=== PATIENT | male | born 1970 | race Caucasian/White ===

== ENCOUNTER 2023-10-26 07:46 | Outpatient (AMB) | payer OTHER, SELFPAY ==
[2023-10-26 07:54] VITALS: BP 134/86; PULSE 71; RESP 14; TEMP 35.9; O2SAT 99; BMI 45.3
--- NOTE | 2023-10-26 07:54 | A.OFFPC_ITS ---
Vital Signs 10/26/23 07:54 Height 6 ft 1 in Weight 343 lb 8 oz BMI 45.3 BP 134/86 Blood Pressure Location Lt brachial Position Sitting Respiration 14 Pulse 71 Pulse Source Pulse Oximeter Temp 96.6 F L Temp Source Temporal Artery Scan Pulse Oximetry (%) 99 Oxygen Delivery Method Room Air Intake Visit Reasons: transferring from [facility], requesting refill Intake Note: Patient needs refill on losartan. Typist Required: No Accompanied by: Self / Same As Patient Allergies adhesive tape Adverse Reaction (Severe, Verified 10/26/23 07:59) Hives Medication List - Last Reconciled 10/26/23 by Yanna Cardoso PA-C acetaminophen (Tylenol Extra Strength) 1,000 mg PO Q8H PRN allopurinol 200 mg PO DAILY amlodipine 5 mg PO DAILY clobetasol 0.05% 1 appl topical BID CPAP (CPAP Machine/Device) As directed epinephrine 1 mg IM Q30M PRN fluoxetine 40 mg PO DAILY losartan 100 mg PO DAILY meloxicam 15 mg PO DAILY multivitamin 1 tab PO DAILY Tobacco use date assessed: 10/26/23 Dental Screening Dental Screen Date: 10/26/23 Did you have a dental visit in the last 12 months?: No Did you have a dental problem in the last 6 months where you did not have access to dental care?: No Was dental information given to patient?: Yes HPI transferring from [facility], requesting refill HPI Details Patient is a 53-year-old male who presents today to reestablish care. He is transferring from [facility] and his last cpe with me was 09/11/23 (states he did not do his labs yet). His records are not yet available to be reviewed. He has a significant past medical history of hypertension, sleep apnea, on CPAP, gout, colon polyps, anxiety and depression. CV: Blood pressure today in the office is 134/86. He is currently on losartan 100 mg, amlodipine 5 mg. No chest pain, shortness and breath or palpitations. Cholesterol has been diet controlled. PULM: Compliant with CPAP. Follows with sleep Medicine. Psych: Well controlled with fluoxetine 40 mg. No SI/HI. Musculoskeletal: Allopurinol 200 mg has been helpful for his gout. Uses Tyl enol and meloxicam as needed for aches and pains. Colonoscopy: January 20 2023, due in 2025-polyps PSA:reports being done last year, no urinary sx. PFSH Medical History (Updated 10/26/23 @ 08:54 by Yanna Cardoso PA-C) Colon polyps Gout Hypertension Surgical History (Updated 10/26/23 @ 08:53 by Yanna Cardoso PA-C) H/O gastric sleeve Social History Housing: House Patient Tobacco Use Status: Never used Tobacco e-Cigarette/Vaping Use: Never Used service: No Current occupational status: employed Current occupation: [employer] Cognitive needs: No Hearing needs: Yes Vision needs: No Questionnaire PHQ-9 Over the last 2 weeks, how often have you been bothered by any of the following problems? 1. Little interest or pleasure in doing things: several days 2. Feeling down, depressed, or hopeless: not at all 3. Trouble falling or staying asleep, or sleeping too much: more than half the days 4. Feeling tired or having little energy: nearly every day 5. Poor appetite or overeating: not at all 6. Feeling bad about yourself - or that you are a failure or have let yourself or your family down: not at all 7. Trouble concentrating on things, such as reading the newspaper or watching television: several days 8. Moving or speaking so slowly that other people could have noticed. Or the opposite - being so fidgety or restless that you have been moving around a lot more than usual: not at all 9. Thoughts that you would be better off or of hurting yourself in some way: not at all Total score: 7 Depression Screening Interpretation: Positive Depression Screening Follow-up: E xisting condition and In treatment Depression Screening Done: Yes 23556 - PHQ-9 Billing: Yes Source: Developed by Drs. Serafin Chille, Acacia White, Flynn Hernandez and colleagues, with an educational johanna from [employer]. Thrive Questionnaire Date Thrive assessed: 10/26/23 I am a: Patient What is your living situation today?: I have a steady place to live Within the past 12 months, did the food you bought not last and you didn't have the money to get more?: Never true Within the past 12 months, did you worry whether your food would run out before you got money to buy more?: Never true Do you have trouble paying for medicines?: No Do you have trouble getting transportation to medical appointments?: No Do you have trouble paying your heating and electricity bill?: No Do you have trouble taking care of your child, family member or friend?: No Do you have trouble with day-to-day activities such as bathing, preparing meals, shopping, managing finances, etc.?: No Are you currently unemployed and looking for a job?: No Are you interested in more education?: No Please select the resources that you would like help with: None Currently or been in a relationship where the following occur: no concerns reported THRIVE Score: 0 AUDIT C Alcohol Use Questionnaire (AUDIT-C) 1. How often do you have a drink containing alcohol?: Monthly or less 2. How many drinks containing alcohol do you have on a typical day when you are drinking?: 1 or 2 3. How often do you have six or more drinks on one occasion?: Never Total Score: 1 Score Reviewed/Action Taken: Yes RANDALL-7 AMB Questionnaire RANDALL-7 Date RANDALL - 7 assessed: 10/26/23 Feeling nervous, anxious, or on edge: 0 = Not at all Not being able to stop or control worryin = Not at all Worrying too much about different things: 0 = Not at all Trouble relaxin = Not at all Being so restless that it is hard to sit still: 0 = Not at all Becoming easily annoyed or irritable: 0 = Not at all Feeling afraid as if something awful might happen: 0 = Not at all Total RANDALL-7 score (0-4 normal; 5-9 mild; 10-14 moderate; 15-21 severe): 0 Source: Developed by Drs. Serafin Chilel, Acacia White, Flynn Hernandez and colleagues, with an educational johanna from [employer]. RANDALL-7 Assessment Billing RANDALL-7 Assessment Tool: RANDALL-7 Assessment 49580 Review of Systems Const Denies fatigue, Denies fever(s), Denies night sweats and Denies weight loss Eyes Denies blurry vision ENT Denies facial pain, Denies nasal congestion and Denies nasal discharge Card Denies chest pain, Denies lightheadedness, Denies palpitations and Denies dyspnea Resp Denies cough, Denies dyspnea and Denies wheezing GI Denies abdominal pain, Denies hematochezia, Denies constipation, Denies diarrhea, Denies nausea and Denies vomiting Endo Denies fatigue and Denies palpitations Aller/Immun Denies wheezing Physical exam (Primary Care) Vital Signs: Last Vital Signs Temp 96.6 F L 10/26/23 07:54 Pulse 71 10/26/23 07:54 Resp 14 10/26/23 07:54 BP 134/86 10/26/23 07:54 Pulse Ox 99 10/26/23 07:54 Oxygen Delivery Method Room Air 10/26/23 07:54 BMI result Body Mass Index 45.3 Tobacco/Smoking Status: Tobacco use Status Tobacco use date assessed 10/26/23 10/26/23 08:08 Patient Tobacco Use Status Never used Tobacco 10/26/23 08:08 e-Cigarette/Vaping Use Never Used 10/26/23 08:08 PHQ-9: PHQ-9 Score PHQ-9: Total score 7 10/26/23 08:13 Depression Screening Interpretation: Positive Depression Screening Follow-up: Existing condition and In treatment Thrive Assessment: Date of Thrive Assessment Date Thrive assessed 10/26/23 10/26/23 08:13 Currently or been in a relationship where the following occur: no concerns reported Const Orientation/consciousness: patient oriented x3 HENMT Ears: hearing grossly normal bilaterally Neck Thyroid: Thyroid normal Lymphatic: no lymphadenopathy noted Resp Auscultation: clear to auscultation bilaterally Cardio Rate: regular rate Rhythm: regular rhythm Heart sounds: S1 normal heart sound present and S2 normal heart sound present GI Inspection: Yes normal to inspection Palpation (GI): Soft to palpation and Other GI palpation findings present (nontender, no cva tenderness) Auscultation: normoactive bowel sounds Rectal Exam - Male: Yes deferred Skin General skin exam: no rashes or lesions noted Neuro General: patient oriented x3, gait normal and no focal motor deficits Results Reviewed Results Reviewed: He was able to pull up his portal and his last BMP from last year was WNL, CBC WNL, PSA 0.4 Assessment and Plan Assessment & Plan (1) Hypertension: Code(s): I10 - Essential (primary) hypertension Qualifiers: Hypertension type: primary hypertension Qualified Code(s): I10 - Essential (primary) hypertension Plan: BP elevated today above goal but has been out of losartan for the last 4 days. He does monitor blood pressures at home and reports some as normal. We will return in 4 months for BP recheck. Refills provided at the losartan and amlodipine today. Prefers 30 day supplies. (2) Gout: Code(s): M10.9 - Gout, unspecified Qualifiers: Gout site: foot Gout etiology: unspecified cause Chronicity: chronic Laterality: unspecified laterality Qualified Code(s): M1A.0790 - Idiopathic chronic gout, unspecified ankle and foot, without tophus (tophi) Plan: No current flare. Well-controlled with allopurinol. Uric acid ordered. (3) Colon polyps: Code(s): K63.5 - Polyp of colon Qualifiers: Colon polyp type: unspecified Colon location: unspecified part of colon Qualified Code(s): K63.5 - Polyp of colon Plan: waiting on records due 2025 (4) H/O gastric sleeve: Code(s): Z90.3 - Acquired absence of stomach [part of] Plan: stable. compliant with vitamins Plan labs ordered cbc, cmp, lipids, tsh, psa ordered f/u in 4 months or sooner prn pt understands and agrees with the plan Orders: Orders Lipid Panel Today I10 - Essential (primary) hypertension, M10.9 - Gout, unspecified Complete Blood Count Auto Diff Today I10 - Essential (primary) hypertension, M10.9 - Gout, unspecified TSH reflex Free T4 Today I10 - Essential (primary) hypertension, M10.9 - Gout, unspecified Comprehensive [place]. Panel Fast Today I10 - Essential (primary) hypertension, M10.9 - Gout, unspecified PSA, Ultra Sensitive Today I10 - Essential (primary) hypertension, M10.9 - Gout, unspecified Medications: New amlodipine 5 mg PO DAILY 30 tabs 11RF allopurinol 200 mg (2 x 100 mg) PO DAILY 30 tabs 11RF losartan 100 mg PO DAILY 30 tabs 11RF clobetasol 0.05% 1 appl topical BID 45 grams 3RF meloxicam 15 mg PO DAILY 30 tabs 11RF fluoxetine 40 mg (2 x 20 mg) PO DAILY 30 caps 11RF Coding Level of Care Code Est Pt Level 4 (02131) Complex EM visit Add On G2211 Diagnoses Primary hypertension I10 Hypertension type: primary hypertension Chronic gout of foot, unspecified cause, unspecified laterality M1A.0790 Gout site: foot Gout etiology: unspecified cause Chronicity: chronic Laterality: unspecified laterality Polyp of colon, unspecified part of colon, unspecified type K63.5 Colon polyp type: unspecified Colon location: unspecified part of colon H/O gastric sleeve Z90.3 Additional Codes RANDALL-7 Assessment Billing - RANDALL-7 Assessment Tool: RANDALL-7 Assessment 23059 ([id number])
== END 2023-10-26 08:54 | disposition home or self-care (01) ==
PROVIDERS: Visit Provider Physician Assistant
DX: I10 Essential (primary) hypertension (principal); M1A.0790 Idiopathic chronic gout, unspecified ankle and foot, without tophus (tophi); K63.5 Polyp of colon; Z90.3 Acquired absence of stomach [part of]
CPT/HCPCS: 99214; G2211

== ENCOUNTER 2024-04-28 08:15 | Outpatient (AMB) | payer OTHER, SELFPAY ==
--- NOTE | 2024-04-28 08:35 | MHC.PC.OV ---
Vital Signs 04/28/24 08:36 Height 6 ft 1 in Weight 345 lb 8 oz BMI 45.6 BP 132/80 Blood Pressure Location Lt brachial Position Sitting Pulse 99 Pulse Source Pulse Oximeter Pulse Oximetry (%) 96 Oxygen Delivery Method Room Air Intake Visit Reasons: bp check labs Intake Note: Blood pressure follow up. Did not get labs done, can do today. Allergies adhesive tape Adverse Reaction (Severe, Verified 10/26/23 07:59) Hives Medication List - Last Reconciled 04/28/24 by Yanna Cardoso PA-C acetaminophen (Tylenol Extra Strength) 1,000 mg PO Q8H PRN allopurinol 200 mg (2 x 100 mg) PO DAILY amlodipine 5 mg PO DAILY clobetasol 0.05% 1 appl topical BID CPAP (CPAP Machine/Device) As directed epinephrine 1 mg IM Q30M PRN fluoxetine 40 mg (2 x 20 mg) PO DAILY losartan 100 mg PO DAILY meloxicam 15 mg PO DAILY multivitamin 1 tab PO DAILY Tobacco use date assessed: 10/26/23 Dental Screening Dental Screen Date: 10/26/23 HPI bp check labs HPI Details Patient is a 53-year-old male who presents today to follow up. He has a significant past medical history of hypertension, sleep apnea, on CPAP, gout, colon polyps, anxiety and depression. No acute concerns. He forgot to do labs prior to today's appointment. General: in 2019 he had the gastric sleeve and lost 160 lbs. He was 394 at his highest weight. He did gain back weight since the surgery. He has followed with a associate director finance. He has tried megan villagran atslick. The most he has lost with diet has been 30 lbs. He states he has a hard time moving from this current weight despite paying attention to diet. He works 10 hrs a day and does a lot of walking. He would like to try Wegovy. He states that he has thought about this a lot and thinks that this would be beneficial especially to get him back on track with his diet. CV: Blood pressure today in the office is 132/80. He is currently on losartan 100 mg, amlodipine 5 mg. No chest pain, shortness and breath or palpitations. Cholesterol has been diet controlled. PULM: Compliant with CPAP. Follows with sleep Medicine. Psych: Well controlled with fluoxetine 40 mg. No SI/HI. Musculoskeletal: Allopurinol 200 mg has been helpful for his gout. Uses Tylenol and meloxicam as needed for aches and pains. Colonoscopy: January 20 2023, due in 2025-polyps PSA:reports being done last year, no urinary sx. 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 1. Little interest or pleasure in doing things: not at all 2. Feeling down, depressed, or hopeless: not at all 3. Trouble falling or staying asleep, or sleeping too much: not at all 4. Feeling tired or having little energy: not at all 5. Poor appetite or overeating: not at all 6. Feeling bad about yourself - or that you are a failure or have let yourself or your family down: not at all 7. Trouble concentrating on things, such as reading the newspaper or watching television: not at all 8. Moving or speaking so slowly that other people could have noticed. Or the opposite - being so fidgety or restless that you have been moving around a lot more than usual: not at all 9. Thoughts that you would be better off or of hurting yourself in some way: not at all Total score: 0 Source: Developed by Drs. Serafin Chilel, Acacia White, Flynn Hernandez and colleagues, with an educational johanna from [employer]. Thrive Questionnaire Date Thrive assessed: 04/14/24 Do you have trouble with day-to-day activities such as bathing, preparing meals, shopping, managing finances, etc.?: I choose not to answer this question Are you currently unemployed and looking for a job?: I choose not to answer this question Are you interested in more education?: I choose not to answer this question Please select the resources that you would like help with: None Currently or been in a relationship where the following occur: No concerns reported THRIVE Score: 0 AUDIT C Alcohol Use Questionnaire (AUDIT-C) 1. How often do you have a drink containing alcohol?: 2-4 times a month 2. How many drinks containing alcohol do you have on a typical day when you are drinking?: 1 or 2 3. How often do you have six or more drinks on one occasion?: Never Total Score: 2 RANDALL-7 AMB Questionnaire RANDALL-7 Date RANDALL - 7 assessed: 10/26/23 Feeling nervous, anxious, or on edge: 0 = Not at all Not being able to stop or control worryin = Not at all Worrying too much about different things: 0 = Not at all Trouble relaxin = Not at all Being so restless that it is hard to sit still: 0 = Not at all Becoming easily annoyed or irritable: 0 = Not at all Feeling afraid as if something awful might happen: 0 = Not at all Total RANDALL-7 score (0-4 normal; 5-9 mild; 10-14 moderate; 15-21 severe): 0 Source: Developed by Drs. Serafin Chilel, Acacia White, Flynn Hernandez and colleagues, with an educational johanna from [employer]. Physical exam (Primary Care) Vital Signs: Last Vital Signs Pulse 99 04/28/24 08:36 BP 132/80 04/28/24 08:36 Pulse Ox 96 04/28/24 08:36 Oxygen Delivery Method Room Air 04/28/24 08:36 BMI result Body Mass Index 45.6 Tobacco/Smoking Status: Tobacco use Status Tobacco use date assessed 10/26/23 04/28/24 08:35 Patient Tobacco Use Status Never used Tobacco 04/28/24 08:35 e-Cigarette/Vaping Use Never Used 04/28/24 08:35 PHQ-9: PHQ-9 Score PHQ-9: Total score 0 04/28/24 11:24 Thrive Assessment: Date of Thrive Assessment Date Thrive assessed 04/14/24 04/28/24 08:35 Currently or been in a relationship where the following occur: No concerns reported Const Orientation/consciousness: patient oriented x3 HENMT Ears: hearing grossly normal bilaterally Neck Thyroid: Thyroid normal Lymphatic: no lymphadenopathy noted Resp Auscultation: clear to auscultation bilaterally Cardio Rate: regular rate Rhythm: regular rhythm Heart sounds: S1 normal heart sound present and S2 normal heart sound present GI Inspection: Yes normal to inspection Palpation (GI): Soft to palpation and Other GI palpation findings present (nontender, no cva tenderness) Auscultation: normoactive bowel sounds Rectal Exam - Male: Yes deferred Skin General skin exam: no rashes or lesions noted Neuro General: patient oriented x3, gait normal and no focal motor deficits Coding Level of Care Code Est Pt Level 4 (43802) Complex EM visit Add On G2211 Diagnoses Severe obesity (BMI >= 40) E66.01 MDD (major depressive disorder), recurrent episode, mild F33.0 Primary hypertension I10 Hypertension type: primary hypertension Assessment & Plan Assessment & Plan (1) Severe obesity (BMI >= 40): Code(s): E66.01 - Morbid (severe) obesity due to excess calories Category: Medical Plan: We will start on Wegovy. We discussed risks and benefits and adverse effects of this medication including nausea, vomiting, constipation, increased risk of pancreatitis. He is aware of the increased risk of thyroid malignancies. No family history. (2) MDD (major depressive disorder), recurrent episode, mild: Code(s): F33.0 - Major depressive disorder, recurrent, mild Category: Medical Plan: Well-controlled fluoxetine. Continue current regimen (3) Hypertension: Code(s): I10 - Essential (primary) hypertension Category: Medical Qualifiers: Hypertension type: primary hypertension Qualified Code(s): I10 - Essential (primary) hypertension Plan: WNL. Continue current regimen. Plan He will get labs done today. Orders: Orders Hemoglobin A1c Today E66.01 - Morbid (severe) obesity due to excess calories Medications: New semaglutide (weight loss) (Wegovy) 0.25 mg (0.5 mL) subcut QWEEK 2 mL 1RF
[2024-04-28 08:36] VITALS: BP 132/80; PULSE 99; O2SAT 96; BMI 45.6
== END 2024-04-28 09:16 | disposition home or self-care (01) ==
LOC: HO.HMCFM 08:15
PROVIDERS: PCP Physician Assistant; Visit Provider Physician Assistant
DX: I10 Essential (primary) hypertension (principal); E66.01 Morbid (severe) obesity due to excess calories; F33.0 Major depressive disorder, recurrent, mild; Z68.42 Body mass index [BMI] 45.0-49.9, adult

== ENCOUNTER → 2024-04-28 08:15 | Outpatient (BNVA) | payer OTHER, SELFPAY | PROVIDERS: Visit Provider Physician Assistant ==

== ENCOUNTER 2024-04-29 06:02 | Outpatient (REF) | payer OTHER, SELFPAY ==
[2024-04-29 10:24] LABS: MANUAL DIFF FLAG NO
[2024-04-29 10:35] LABS: Basophils Percent Auto 0.8 % (0-2); Eosinophils Absolute Auto 0.2 X10*3/uL (0.0-0.4); Eosinophils Percent Auto 3.1 % (0-4); Hematocrit 41.7 % (42.0-52.0); Hemoglobin 13.9 g/dl (14.0-18.0); Imm Gran Abs Auto 0.01 X10*3/uL (0.00-0.03); Imm Gran Pct Auto 0.2 % (0.0-0.4); Lymphocytes Absolute Auto 1.2 X10*3/uL (1.2-4.9); Lymphocytes Percent Auto 23.6 % (20-40); Mean Corpuscular HGB Conc 33.3 g/dl (31.0-36.0); Mean Corpuscular Hemoglobin 30.2 pg (27.0-33.0); Mean Corpuscular Volume 90.7 fL (80.0-98.0); Mean Platelet Volume 9.7 fL (9.4-12.4); Monocytes Absolute Auto 0.4 X10*3/uL (0.1-1.2); Monocytes Percent Auto 7.6 % (2-11); Neutrophils Absolute Auto 3.2 x10*3/uL (2.0-8.3); Neutrophils Percent Auto 64.7 % (45-73); Platelet Count 243 X10*3/uL (160-400); Red Cell Distribution Width 12.9 % (11.0-16.0); White Blood Count 4.9 X10*3/uL (4.8-10.8)
[2024-04-29 11:02] LABS: Estimated Average Glucose 103 mg/dL; Hemoglobin A1C 116.3855 umol/L; Hemoglobin A1c % 5.2 % (<6.0); Total Hemoglobin (HGBA1C) 3469.7439 umol/L
[2024-04-29 11:24] LABS: Alanine Aminotransferase 39 U/L (0-40); Albumin Level 3.9 g/dL (3.5-5.0); Alkaline Phosphatase 52 U/L (39-117); Anion Gap 13 (12-20); Aspartate Amino Transferase 32 U/L (5-37); Bilirubin Total 0.5 mg/dL (0.0-1.0); Blood Urea Nitrogen 18 mg/dL (9-16); Calcium 9.6 mg/dL (8.4-10.2); Carbon Dioxide 21 mmol/L (22-29); Chloride 109 mmol/L (96-108); Cholesterol 178 mg/dL (<200); Estimated Glomerular Filt Rate > 60; Glucose Fasting 86 mg/dL (60-99); HDL Cholesterol 48 mg/dL (>40); LDL Cholesterol Calculated 112 mg/dL (<100); Potassium 4.3 mmol/L (3.3-5.1); Sodium 139 mmol/L (135-145); TSH reflex Free T4 1.09 uIU/mL (0.32-4.0); Total Protein 7.3 g/dL (6.5-8.0); Triglycerides 90 mg/dL (<150)
[2024-05-10 21:33] LABS: PSA, Ultra Sensitive 0.44 ng/mL
== END 2024-04-29 06:03 | disposition home or self-care (01) ==
LOC: HO.HMGCLDS 06:02
PROVIDERS: PCP Physician Assistant; Visit Provider Physician Assistant
DX: M10.9 Gout, unspecified (principal); I10 Essential (primary) hypertension; E66.01 Morbid (severe) obesity due to excess calories; Z12.5 Encounter for screening for malignant neoplasm of prostate; Z13.1 Encounter for screening for diabetes mellitus
CPT/HCPCS: 36415; 80053; 80061; 83036; 84153; 84443; 85025

== ENCOUNTER 2024-05-31 11:38 | Outpatient (AMB) | payer OTHER, SELFPAY ==
--- NOTE | 2024-05-31 11:55 | AM.OFFWIN_ITS ---
Intake Vital Signs 05/31/24 11:56 Weight 346 lb BP 130/80 Blood Pressure Location Rt brachial Position Sitting Pulse 70 Pulse Source Pulse Oximeter Temp 97.8 F Temp Source Oral Pulse Oximetry (%) 98 Oxygen Delivery Method Room Air Intake Visit Reasons: EP ripped off RT thumb nail Intake Note: Patient here for thumb nail hanging off nail bed that happened about 1 hour ago. Patient Tobacco Use Status: Never used Tobacco Allergies adhesive tape Adverse Reaction (Severe, Verified 05/31/24 11:57) Hives Do you need a note to return to daycare/school/sports/work: No HPI HPI Comments History of Present Illness Details This is a 53-year-old male with a past medical history of arthritis, hypertension, gout and depression presenting for evaluation of a right thumb injury that occurred prior to arrival. Patient states he was working on his [employer] truck and was utilizing a wrench to loosen a bolt when the bolt loosened suddenly and he caught his right thumbnail on a piece of his truck. Patient states the thumbnail is attached at the base only. 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 Cognitive needs: No Hearing needs: Yes Vision needs: No Review of Systems Const All systems reviewed & are unremarkable except as noted in HPI and below Reports no additional complaints Eyes Reports no additional complaints ENT Reports no additional complaints Card Reports no additional complaints Resp Reports no additional complaints GI Reports no additional complaints Reports no additional complaints Musc Details: avulsion right thumb nail, no bony pain of right thumb Skin/Breast Details: avulsion right thumb nail Neuro Reports no additional complaints Psych Reports no additional complaints Endo Reports no additional complaints Mumtaz/Lymph Reports no additional complaints Physical Exam Vital Signs: Last Vital Signs Temp 97.8 F 05/31/24 11:56 Pulse 70 05/31/24 11:56 BP 130/80 05/31/24 11:56 Pulse Ox 98 05/31/24 11:56 Oxygen Delivery Method Room Air 05/31/24 11:56 Const General: cooperative, comfortable, no acute distress and well developed Nutritional Appearance: obese Orientation/consciousness: patient oriented x3 Limitations: no limitations Neuro General: patient oriented x3 Extrem Other: Near complete avulsion of right thumb nail; no damage noted to the nail base, no bony pain phalanges of the right 1st digit General: Yes full ROM (right thumb) Right upper extremity: Extremity exam: right hand Details: abnormal to inspection (avulsion right thumb nail; attached at base of nail only) Psych Appearance: grossly normal Mental Status: mental status grossly normal Insight: Good insight present (Psych) Judgement: Good judgement present (Psych) Office Procedures Nail I&D/Excision 18731-Cccubfrf of nail plate, partial or completed, single 49574-Apdtghrx of nail/nail matrix, partial or complete, perm removal (Right thumb nail completely removed following digital block with 2% lidocaine; no damage to nail bed of right 1st digit.) Additional procedure code (CPT) needed Assessment & Plan Assessment & Plan (1) Avulsion of nail of right thumb: Comment: Thumbnail completely removed, no damage to the nail bed noted. Code(s): S61.101A - Unspecified open wound of right thumb with damage to nail, initial encounter Plan: Nonstick gauze with Kerlix dressing is placed. Patient is instructed to use Tylenol as needed for his discomfort and use non.stick dressing with antibiotic ointment topically. Coding Level of Care Code New Pt Level 4 (44400) Diagnoses Avulsion of nail of right thumb S61.101A CPT Codes I&D Nail Bed/Hematoma - CPT: 52573-Uduogyzw of nail plate, partial or completed, single ([id number]) I&D Nail Bed/Hematoma - CPT: 44990-Reqhjmkq of nail/nail matrix, partial or complete, perm removal ([id number]) Time Spent (min) 35
[2024-05-31 11:56] VITALS: BP 130/80; PULSE 70; TEMP 36.6; O2SAT 98
== END 2024-05-31 12:58 | disposition home or self-care (01) ==
PROVIDERS: PCP Physician Assistant; Visit Provider Physician Assistant
DX: S61.101A Unspecified open wound of right thumb with damage to nail, initial encounter (principal)
CPT/HCPCS: 11730

== ENCOUNTER 2025-02-23 07:54 | Outpatient (REF) | payer OTHER, SELFPAY ==
[2025-02-23 11:22] LABS: Appearance Urine Clear; Glucose Urine UA Negative (Negative); PH 8.0 (5.0-9.0); Specific Gravity - Urine 1.015 (1.005-1.025)
[2025-02-23 11:27] LABS: MANUAL DIFF FLAG NO
[2025-02-23 11:43] LABS: Hematocrit 41.4 % (42.0-52.0); Hemoglobin 13.9 g/dl (14.0-18.0); Imm Gran Abs Auto 0.02 X10*3/uL (0.00-0.03); Imm Gran Pct Auto 0.4 % (0.0-0.4); Lymphocytes Absolute Auto 1.3 X10*3/uL (1.2-4.9); Mean Corpuscular HGB Conc 33.6 g/dl (31.0-36.0); Mean Corpuscular Hemoglobin 30.9 pg (27.0-33.0); Mean Corpuscular Volume 92.0 fL (80.0-98.0); NRBC Abs Auto 0.000 X10*3/uL (0.0-0.012); NRBC Pct Auto 0.0 /100WBC (0.0-0.2); Platelet Count 249 X10*3/uL (160-400); Red Blood Count 4.50 X10*6/uL (4.60-5.80); White Blood Count 5.6 X10*3/uL (4.8-10.8)
[2025-02-23 12:08] LABS: Ferritin 127 ng/mL (20-250)
[2025-02-23 12:18] LABS: Alanine Aminotransferase 44 U/L (0-40); Albumin Level 4.3 g/dL (3.5-5.0); Alkaline Phosphatase 44 U/L (39-117); Anion Gap 10 (12-20); Aspartate Amino Transferase 35 U/L (5-37); Blood Urea Nitrogen 15 mg/dL (9-16); Calcium 9.0 mg/dL (8.4-10.2); Carbon Dioxide 24 mmol/L (22-29); Chloride 107 mmol/L (96-108); Cholesterol 182 mg/dL (<200); Estimated Glomerular Filt Rate > 60; HDL Cholesterol 44 mg/dL (>40); Iron 120 mcg/dL (45-160); Magnesium 2.2 mg/dL (1.6-2.6); Percent Iron Saturation 42 % (15-50); Potassium 4.1 mmol/L (3.3-5.1); Sodium 137 mmol/L (135-145); Total Iron Binding Capacity 286 mcg/dL (228-428); Total Protein 7.6 g/dL (6.5-8.0); Triglycerides 127 mg/dL (<150); Unsaturated Iron Binding 166 ug/dL
[2025-02-23 12:29] LABS: Uric Acid 5.8 mg/dL (3.4-7.0)
[2025-02-23 12:49] LABS: Folate 7.7 ng/mL (> or = 4.0); Vitamin B12 214 pg/mL (200-900)
[2025-02-28 13:13] LABS: Testosterone, Free 53.5 pg/mL (35.0-155.0)
== END 2025-02-23 07:55 | disposition home or self-care (01) ==
LOC: HO.WFDLDS 07:54
PROVIDERS: PCP Physician Assistant; Visit Provider Physician Assistant
DX: Z00.00 Encounter for general adult medical examination without abnormal findings (principal); Z01.89 Encounter for other specified special examinations; Z12.5 Encounter for screening for malignant neoplasm of prostate; L30.9 Dermatitis, unspecified; I10 Essential (primary) hypertension; F33.0 Major depressive disorder, recurrent, mild; E66.01 Morbid (severe) obesity due to excess calories; R53.83 Other fatigue; R55 Syncope and collapse; R06.00 Dyspnea, unspecified; M1A.0790 Idiopathic chronic gout, unspecified ankle and foot, without tophus (tophi); M25.562 Pain in left knee; M79.605 Pain in left leg; M79.604 Pain in right leg; R25.2 Cramp and spasm; Z90.3 Acquired absence of stomach [part of]; Z68.41 Body mass index [BMI] 40.0-44.9, adult
CPT/HCPCS: 36415; 80053; 80061; 81003; 82043; 82306; 82570; 82607; 82728; 82746; 83036; 83540; 83735; 84153; 84402; 84403; 84425; 84443; 84550; 84630; 85025; 93005

== ENCOUNTER 2025-02-23 07:54 | Outpatient (AMB) | payer OTHER, SELFPAY ==
--- OUTSIDE RECORDS SUMMARY | 2025-02-23 07:58 | XMS_ITS | Patient Health Record ---
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 Role Phone Genny Guido MD Primary Care Provider Unavail able Fatuma Busby Unavailable [phone] Allergies Allergen (clinical drug ingredient) Drug/Non Drug Allergy documented on EMR Reaction Allergy Type Onset Date Status Adhesive tape (uncoded) Unknown Allergy Active Reason For Referral No Information Medications Medication SIG (Take, Route, Frequency, Duration) Notes Start Date End Date Status FLUoxetine HCl 20 MG Oral; Duration: 30 Active Allopurinol 100 MG Oral; Duration: 30 Active Losartan Potassium 100 MG Oral; Duration: 30 Active amLODIPine Besylate 10 MG Oral; Duration: 90 Active Social History Tobacco Use: Social History Observation Description Date Details (start date - stop date) Never Smoker NA - NA Tobacco Use/Smoking Question Answer Notes Are you a: nonsmoker Alcohol Screen Question Answer Notes Did you have a drink containing alcohol in the p ast year? No Points 0 Interpretation Negative Tobacco use other than smoking: Question Answer Notes Are you an other tobacco user? No Plan Of Treatment No Information Insurance Providers Payer Name Payer Address Payer Phone Subscriber Number Group Number Insured Name Patient Relationship to Insured Coverage Start Date Coverage End Date [facility] [address] [facility] [place] [id number] Brian Cornejo Self - patient is the insured Medical (General) History Medical History History ICD Code Gout High blood pressure Sciatica Surgical History Surgery Date(Month/Year) umbilical hernia repair 2018 gastric bypass vsg 02/2019
--- NOTE | 2025-02-23 08:05 | MHC.PC.OV ---
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: No Allergies adhesive tape Adverse Reaction (Severe, Verified 02/23/25 08:07) Hives Medication List - Last Reconciled 02/23/25 by Yanna Cardoso PA-C allopurinol 200 mg (2 x 100 mg) PO DAILY amlodipine 5 mg PO DAILY clobetasol 0.05% 1 appl topical BID CPAP (CPAP Machine/Device) As directed epinephrine 1 mg IM Q30M PRN fluoxetine 40 mg PO DAILY losartan 100 mg PO DAILY meloxicam 15 mg PO DAILY multivitamin 1 tab PO DAILY Tobacco use date assessed: 02/23/25 Dental Screening Dental Screen Date: 02/23/25 Did you have a dental visit in the last 12 months?: Yes Did you have a dental problem in the last 6 months where you did not have access to dental care?: No Was dental information given to patient?: Patient has dentist HPI Annual PE HPI Details Patient is a 54-year-old male who presents today for a physical but has a list of concerns today. He has a significant past medical history of hypertension, sleep apnea, on CPAP, gout, colon polyps, anxiety and depression. -He complains today of leg cramps at night. notices it on days that he is more physical active. He tries to wear supportive footwear and states that there is a chance he is not as well hydrated as he should be. He has not tried anything for this. No leg pain with exertion. No leg pain at rest. States that this is just cramps at night and it is not every night. It comes and goes in different calves. He denies any numbness, tingling or weakness. -He states he is also getting upper leg discomfort from groin down to above knee. He states that this only happens at night and it feels like his groin is stiff for tight in the pain will radiate from the groin down the inner thigh. It does not go all the way down the leg. Does not feel numb or tingling. He describes it as like a sharp shooting pain almost like a pinched nerve. Again, this is on days that he is more physically active. He states that he does not exercise or stretch routinely. It gets better with standing up, stretching and moving. No bowel or bladder dysfunction. -reports left knee pain that has been present for years. He states it has gradually worsened. He is intermittently getting instability with the knee. He has not noticed any swelling. The pain is throughout the knee. He is on meloxicam for this and it is helpful but not fully alleviating it. -he tells me today that he also had an episode of syncope in June. He states that it was in the middle of the night he got up and he was stretching because he had discomfort in his leg and then when he was standing there he all of a sudden felt lightheaded. He states that he collapse and he does not know how long he was down for. He assumes it was less than a minute but did not look at the time. He did not feel disoriented after getting up. He states that it was a moment of feeling weak like he was going to faint and then he did collapse. There was no incontinence, biting of the tongue. He did have some back pain from the fall because he landed mostly on his right side. He did not have any chest pain or palpitations with this. He did feel a little off right before he fainted. He does sometimes have shortness a breath with exertion but attributes this to being overweight and out of shape. He has never had a stress test. His blood pressure today in the office is 134/86. He is currently on losartan 100 mg and amlodipine 5 mg daily. His cholesterol has always been diet controlled. -he tells me today he is getting dentures. He states that he has significant gum disease so he is getting his top teeth pulled soon. -He does complain of feeling lack of motivation and fatigue. He states that this has been going on for about a year. He is not on any supplements. He is s/p gastric sleeve. He is compliant with his CPAP. Follows with sleep medicine. He is on fluoxetine 40 mg and feels well with this. No SI/HI. He denies any depression symptoms. He also reports a decreased libido. He states that he is able to get an erection and maintain an erection but he lacks interest in sex. 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 1. Little interest or pleasure in doing things: more than half the days 2. Feeling down, depressed, or hopeless: not at all 3. Trouble falling or staying asleep, or sleeping too much: not at all 4. Feeling tired or having little energy: more than half the days 5. Poor appetite or overeating: more than half the days 6. Feeling bad about yourself - or that you are a failure or have let yourself or your family down: not at all 7. Trouble concentrating on things, such as reading the newspaper or watching television: not at all 8. Moving or speaking so slowly that other people could have noticed. Or the opposite - being so fidgety or restless that you have been moving around a lot more than usual: not at all 9. Thoughts that you would be better off or of hurting yourself in some way: not at all Total score: 6 Source: Developed by Drs. Serafin Chilel, Acacia White, Flynn Hernandez and colleagues, with an educational johanna from [employer]. Thrive Questionnaire Date Thrive assessed: 02/20/25 I am a: Patient What is your living situation today?: I choose not to answer this question Within the past 12 months, did the food you bought not last and you didn't have the money to get more?: I choose not to answer this question Within the past 12 months, did you worry whether your food would run out before you got money to buy more?: I choose not to answer this question Do you have trouble paying for medicines?: I choose not to answer this question Do you have trouble getting transportation to medical appointments?: I choose not to answer this question Do you have trouble paying your heating and electricity bill?: I choose not to answer this question Do you have trouble taking care of your child, family member or friend?: I choose not to answer this question Do you have trouble with day-to-day activities such as bathing, preparing meals, shopping, managing finances, etc.?: No Are you currently unemployed and looking for a job?: No Are you interested in more education?: No Please select the resources that you would like help with: None Currently or been in a relationship where the following occur: I choose not to answer THRIVE Score: 0 AUDIT C Alcohol Use Questionnaire (AUDIT-C) 1. How often do you have a drink containing alcohol?: 2-4 times a month 2. How many drinks containing alcohol do you have on a typical day when you are drinking?: 1 or 2 3. How often do you have six or more drinks on one occasion?: Never Total Score: 2 RANDALL-7 AMB Questionnaire RANDALL-7 Date RANDALL - 7 assessed: 10/26/23 Feeling nervous, anxious, or on edge: 0 = Not at all Not being able to stop or control worryin = Not at all Worrying too much about different things: 0 = Not at all Trouble relaxin = Not at all Being so restless that it is hard to sit still: 0 = Not at all Becoming easily annoyed or irritable: 0 = Not at all Feeling afraid as if something awful might happen: 0 = Not at all Total RANDALL-7 score (0-4 normal; 5-9 mild; 10-14 moderate; 15-21 severe): 0 Source: Developed by Drs. Serafin Chilel, Acacia White, Flynn Hernandez and colleagues, with an educational johanna from [employer]. Physical exam (Primary Care) Vital Signs: Last Vital Signs Pulse 62 02/23/25 08:08 Resp 14 02/23/25 08:08 BP 134/86 02/23/25 08:08 Pulse Ox 98 02/23/25 08:08 Oxygen Delivery Method Room Air 02/23/25 08:08 BMI result Body Mass Index 44.2 Tobacco/Smoking Status: Tobacco use Status Tobacco use date assessed 02/23/25 02/23/25 08:12 Patient Tobacco Use Status Never used Tobacco 02/23/25 08:06 e-Cigarette/Vaping Use Never Used 02/23/25 08:06 PHQ-9: PHQ-9 Score PHQ-9: Total score 6 02/23/25 08:17 Thrive Assessment: Date of Thrive Assessment Date Thrive assessed 02/20/25 02/23/25 08:06 Currently or been in a relationship where the following occur: I choose not to answer Const Orientation/consciousness: patient oriented x3 HENMT Ears: hearing grossly normal bilaterally and TM's normal bilaterally General nose exam: No nasal polyps present Face and sinus: Yes sinuses nontender Mouth: Normal oral and palatal mucosa present Eyes Pupils: Equal, round and reactive pupils present EOM: EOMs intact bilaterally Neck Neck: Yes full ROM and Yes no lymphadenopathy Thyroid: Thyroid normal Chest Chest palpation & inspection: normal inspection of the chest Resp Auscultation: clear to auscultation bilaterally Cardio Rate: regular rate Rhythm: regular rhythm Heart sounds: S1 normal heart sound present and S2 normal heart sound present Peripheral pulses: Peripheral pulses 2+ throughout GI Other: Soft, nontender Auscultation: normal bowel sounds Rectal Exam - Male: Yes deferred General: Yes no CVA tenderness Back/Spine/Pelvis Other: Nontender Back: no CVA tenderness Skin General skin exam: no rashes or lesions noted Neuro General: patient oriented x3, gait normal, CN's II-XI intact bilaterally and deep tendon reflexes 2+ bilaterally Cranial nerves: Yes Equal, round and reactive pupils present Motor exam (neuro): 5/5 motor strength present throughout Sensory Exam: double simultaneous stimulation for sensation normal Coordination: [id number] test normal and Romberg test negative Extrem General: Yes normal to inspection and Yes full ROM Psych Affect: normal affect Attitude: cooperative Thought process: Normal thought process present Thought content: Normal thought content present Insight: Good insight present (Psych) Judgement: Good judgement present (Psych) Office Procedures EKG Details: EKG today in office is sinus bradycardia at a rate of 58 beats per minute with nonspecific STT wave abnormalities. No prior study to compare [id number], Complete Results Reviewed Results Reviewed: Laboratory Tests 04/29/24 06:06 WBC 4.9 RBC 4.60 Hgb 13.9 L Hct 41.7 L Plt Count 243 Sodium 139 Potassium 4.3 Chloride 109 H Carbon Dioxide 21 L Anion Gap 13 BUN 18 H Creatinine 0.91 Estimated GFR > 60 Hemoglobin A1c % 5.2 Calcium 9.6 Total Bilirubin 0.5 AST 32 ALT 39 Alkaline Phosphatase 52 Total Protein 7.3 Albumin 3.9 Triglycerides 90 Cholesterol 178 LDL Cholesterol, Calc 112 H HDL Cholesterol 48 PSA Ultra-Sensitive 0.44 TSH 1.09 Coding Level of Care Code Est Pt Level 4 (24339) Est Pt Prev Care 40-64y(64576) Diagnoses Routine general medical examination at a health care facility Z00.00 Eczema L30.9 Primary hypertension I10 Hypertension type: primary hypertension H/O gastric sleeve Z90.3 MDD (major depressive disorder), recurrent episode, mild F33.0 Severe obesity (BMI >= 40) E66.01 Fatigue R53.83 Syncope R55 Dyspnea R06.00 Left knee pain M25.562 Bilateral leg pain M79.604; M79.605 Leg cramps R25.2 CPT Codes EKG - CPT: 94582-[id number], Complete ([id number]) Assessment & Plan Assessment & Plan (1) Routine general medical examination at a health care facility: Code(s): Z00.00 - Encounter for general adult medical examination without abnormal findings Plan: reviewed labs ordered referrals placed (2) Eczema: Code(s): L30.9 - Dermatitis, unspecified Category: Medical Plan: Refilled clobetasol cream. Referral to Dermatology. (3) Hypertension: Code(s): I10 - Essential (primary) hypertension Category: Medical Qualifiers: Hypertension type: primary hypertension Qualified Code(s): I10 - Essential (primary) hypertension Plan: WNL. Continue current regimen (4) H/O gastric sleeve: Code(s): Z90.3 - Acquired absence of stomach [part of] Category: Surgical Plan: Labs ordered. Did discuss that he may likely need to be on vitamins. (5) MDD (major depressive disorder), recurrent episode, mild: Code(s): F33.0 - Major depressive disorder, recurrent, mild Category: Medical Plan: Currently well-controlled on fluoxetine. ? If fluoxetine is causing decreased libido (6) Severe obesity (BMI >= 40): Code(s): E66.01 - Morbid (severe) obesity due to excess calories Category: Medical Plan: Encouraged diet and exercise. He has lost 10 lb since our previous visit (7) Fatigue: Code(s): R53.83 - Other fatigue Category: Medical Plan: Labs ordered today. We will follow up pending test results (8) Syncope: Code(s): R55 - Syncope and collapse Category: Medical Plan: Labs EKG today is sinus bradycardia at a rate of 58 beats per minute with nonspecific STT wave abnormalities. No previous study to compare. Stress test and echo ordered. Carotid ultrasound ordered (9) Dyspnea: Code(s): R06.00 - Dyspnea, unspecified Category: Medical Plan: As above (10) Left knee pain: Code(s): M25.562 - Pain in left knee Category: Medical Plan: X-ray ordered. Referral to ortho (11) Bilateral leg pain: Code(s): M79.604 - Pain in right leg; M79.605 - Pain in left leg Category: Medical Plan: Imaging ordered (12) Leg cramps: Code(s): R25.2 - Cramp and spasm Plan: Advised to hydrate, try magnesium. We will check labs. I have also encouraged stretching and supportive footwear Orders: Orders Testosterone, Free/Total Today E66.01 - Morbid (severe) obesity due to excess calories, F33.0 - Major depressive disorder, recurrent, mild, I10 - Essential (primary) hypertension, R53.83 - Other fatigue, R55 - Syncope and collapse, Z90.3 - Acquired absence of stomach [part of] Hemoglobin A1c Today E66.01 - Morbid (severe) obesity due to excess calories, F33.0 - Major depressive disorder, recurrent, mild, I10 - Essential (primary) hypertension, R53.83 - Other fatigue, R55 - Syncope and collapse, R73.01 - Impaired fasting glucose, Z90.3 - Acquired absence of stomach [part of] Complete Blood Count Auto Diff Today E66.01 - Morbid (severe) obesity due to excess calories, F33.0 - Major depressive disorder, recurrent, mild, I10 - Essential (primary) hypertension, R53.83 - Other fatigue, R55 - Syncope and collapse, Z90.3 - Acquired absence of stomach [part of] Lipid Panel Today E66.01 - Morbid (severe) obesity due to excess calories, F33.0 - Major depressive disorder, recurrent, mild, I10 - Essential (primary) hypertension, R53.83 - Other fatigue, R55 - Syncope and collapse, Z90.3 - Acquired absence of stomach [part of] Vitamin B12 and Folate Today E66.01 - Morbid (severe) obesity due to excess calories, F33.0 - Major depressive disorder, recurrent, mild, I10 - Essential (primary) hypertension, R53.83 - Other fatigue, R55 - Syncope and collapse, Z90.3 - Acquired absence of stomach [part of] Ferritin Today E66.01 - Morbid (severe) obesity due to excess calories, F33.0 - Major depressive disorder, recurrent, mild, I10 - Essential (primary) hypertension, R53.83 - Other fatigue, R55 - Syncope and collapse, Z90.3 - Acquired absence of stomach [part of] IRON PROFILE Today E66.01 - Morbid (severe) obesity due to excess calories, F33.0 - Major depressive disorder, recurrent, mild, I10 - Essential (primary) hypertension, R53.83 - Other fatigue, R55 - Syncope and collapse, Z90.3 - Acquired absence of stomach [part of] TSH reflex Free T4 Today E66.01 - Morbid (severe) obesity due to excess calories, F33.0 - Major depressive disorder, recurrent, mild, I10 - Essential (primary) hypertension, R53.83 - Other fatigue, R55 - Syncope and collapse, Z90.3 - Acquired absence of stomach [part of] UA CC w/rflx Micro + Cult Today E66.01 - Morbid (severe) obesity due to excess calories, F33.0 - Major depressive disorder, recurrent, mild, I10 - Essential (primary) hypertension, R30.0 - Dysuria, R53.83 - Other fatigue, R55 - Syncope and collapse, Z90.3 - Acquired absence of stomach [part of] Microalbumin, Random (w Creat) Today E66.01 - Morbid (severe) obesity due to excess calories, F33.0 - Major depressive disorder, recurrent, mild, I10 - Essential (primary) hypertension, R53.83 - Other fatigue, R55 - Syncope and collapse, Z90.3 - Acquired absence of stomach [part of] Zinc Today E66.01 - Morbid (severe) obesity due to excess calories, F33.0 - Major depressive disorder, recurrent, mild, I10 - Essential (primary) hypertension, R53.83 - Other fatigue, R55 - Syncope and collapse, Z90.3 - Acquired absence of stomach [part of] Prostate Specific Antigen Scr Today E66.01 - Morbid (severe) obesity due to excess calories, F33.0 - Major depressive disorder, recurrent, mild, I10 - Essential (primary) hypertension, R53.83 - Other fatigue, R55 - Syncope and collapse, Z01.89 - Encounter for other specified special examinations, Z90.3 - Acquired absence of stomach [part of] Uric Acid Today M1A.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 Panel Fast Today E66.01 - Morbid (severe) obesity due to excess calories, F33.0 - Major depressive disorder, recurrent, mild, I10 - Essential (primary) hypertension, R53.83 - Other fatigue, R55 - Syncope and collapse, Z90.3 - Acquired absence of stomach [part of] Magnesium Today E66.01 - Morbid (severe) obesity due to excess calories, F33.0 - Major depressive disorder, recurrent, mild, I10 - Essential (primary) hypertension, R53.83 - Other fatigue, R55 - Syncope and collapse, Z90.3 - Acquired absence of stomach [part of] Vitamin B1 Today E66.01 - Morbid (severe) obesity due to excess calories, F33.0 - Major depressive disorder, recurrent, mild, I10 - Essential (primary) hypertension, R53.83 - Other fatigue, R55 - Syncope and collapse, Z90.3 - Acquired absence of stomach [part of] Vitamin D 25-OH Total Today E66.01 - Morbid (severe) obesity due to excess calories, F33.0 - Major depressive disorder, recurrent, mild, I10 - Essential (primary) hypertension, R53.83 - Other fatigue, R55 - Syncope and collapse, Z90.3 - Acquired absence of stomach [part of] XR hips LINDA min 3V Today M25.551 - Pain in right hip, M25.552 - Pain in left hip XR lumbar spine 2-3V Today M54.50 - Low back pain, unspecified XR knee LT 2V Today M25.561 - Pain in right knee, M25.562 - Pain in left knee AMB EKG-In Office Today R06.00 - Dyspnea, unspecified, R55 - Syncope and collapse, Z13.6 - Encounter for screening for cardiovascular disorders CA stress test Today R06.00 - Dyspnea, unspecified, R55 - Syncope and collapse, Z13.6 - Encounter for screening for cardiovascular disorders NM cardiolite stress test Today R06.00 - Dyspnea, unspecified, R07.9 - Chest pain, unspecified, R55 - Syncope and collapse, Z13.6 - Encounter for screening for cardiovascular disorders ECG holter monitor 24 hour Today R06.00 - Dyspnea, unspecified, R55 - Syncope and collapse, Z13.6 - Encounter for screening for cardiovascular disorders CA echo transthoracic complete Today R06.00 - Dyspnea, unspecified, R55 - Syncope and collapse, Z13.6 - Encounter for screening for cardiovascular disorders Referrals Dermatology Referral L30.9 - Dermatitis, unspecified Orthopedics Referral M25.562 - Pain in left knee Medications: Refilled clobetasol 0.05% 1 appl topical BID 45 grams 3RF
[2025-02-23 08:08] VITALS: BP 134/86; PULSE 62; RESP 14; O2SAT 98; BMI 44.2
== END 2025-02-23 09:00 | disposition home or self-care (01) ==
LOC: HO.HMCFM 07:55
PROVIDERS: PCP Physician Assistant; Visit Provider Physician Assistant
DX: Z00.00 Encounter for general adult medical examination without abnormal findings (principal); I10 Essential (primary) hypertension; E66.01 Morbid (severe) obesity due to excess calories; Z68.41 Body mass index [BMI] 40.0-44.9, adult; L30.9 Dermatitis, unspecified; Z90.3 Acquired absence of stomach [part of]; F33.0 Major depressive disorder, recurrent, mild; R53.83 Other fatigue; R55 Syncope and collapse; R06.00 Dyspnea, unspecified; M25.562 Pain in left knee; M79.604 Pain in right leg

== ENCOUNTER → 2025-03-27 13:48 | Outpatient (REF) | payer OTHER, SELFPAY ==
--- NOTE | 2025-03-27 13:51 | HM_ITS ---
Conclusion: 1. Patient was monitored for total period of 1 day and 1 hour 2. Baseline was normal sinus rhythm with average heart of 66 beats per minute 3. Rare PACs noted 4. No significant pauses or tachyarrhythmias noted 5. No patient reported events MTDD
--- NOTE | 2025-03-27 13:51 | CA_ITS ---
Transthoracic Echocardiogram Patient (Last, First, Middle): Brian Cornejo D Gender: M Date of : 1970 Age: 54 Procedure Date: 03/27/2025 Procedure Type: Transthoracic Echocardiogram Location: OP Height: 185. cm Weight: 151.96 kg BSA: 2.67 m2 Heart Rate: 55 bpm BP: 148 / 90 mmHg Car Repossessor: ARNALDO Referring MD: Yanna Cardoso PA-C Symptoms: Z13.6 - Encounter for screening for cardiovascular disorders Study Quality: Adequate ECG Rhythm: Bradycardia Conclusions: - The left ventricular systolic function is normal. The calculated ejection fraction is 59% by biplane method. - No obvious valvular pathology seen on this study. Findings Left Ventricle Normal left ventricular cavity size. There is mildly increased left ventricular wall thickness. The left ventricular systolic function is normal. The calculated ejection fraction is 59% by biplane method. There is no evidence of regional wall motion abnormalities. Diastolic function is normal for age. Right Ventricle Normal right ventricular cavity size and systolic function. Atria Both atria are normal in size. Aortic Valve There is a normal trileaflet aortic valve. There is no aortic valve stenosis. There is no aortic valve regurgitation. Mitral Valve The mitral valve appears normal. There is no mitral valve regurgitation. There is no mitral valve stenosis. Pulmonic Valve The pulmonic valve is likely normal. Tricuspid Valve Normal tricuspid valve structure. There is trace tricuspid valve regurgitation. There is no evidence of pulmonary hypertension. Great Vessels The asc aorta and aortic arch are normal in size. Venous The inferior vena cava is normal in size and collapses greater than 50% with inspiration. Pericardium/Pleural There is no evidence of pericardial effusion. Prior Study Comparison No prior study available for comparison. Recommendations, Care & Conclusions No obvious valvular pathology seen on this study. Measurements 2D Linear Measurements IVSd: 1.13 0.6-0.9/0.6-1.0 cm LVIDd: 4.94 3.9-5.3/4.2-5.9 cm LVIDd Index: 1.85 2.4-3.2/2.2-3.1 cm/m2 LVIDs: 3.21 2.0-3.6 cm LVPWd: 1.12 0.7-1.1 cm LA Diam: 3.30 2.7-3.8/3.0-4.0 cm LAIDs Index: 1.24 1.5-2.3 cm/m2 LV Mass: 261.19 67-162/88-224 g LV Mass Index: 97.82 43-95/49-115 g/m2 LVOT Diam: 2.30 3.0+(-)1.3 cm 2D Systolic Function EF 4C: 59.40 >55% EF 2C: 59.90 >55% EF BiP: 59.20 >55% Mitral Valve MV Pk E: 0.83 MV PK A: 0.72 MV Decel Time: 254.00 E/A: 1.10 E'Lateral: 11.30 E'Medial: 7.51 E/E' Med: 11.00 E/E' Lat: 7.30 PHT: 74.00 MVA PHT: 2.97 Decel [place]: 3.26 Aortic Valve AoV Pk Darren: 1.34 AoV Mn Darren: 0.93 AoV VTI: 0.32 AoV Pk Grad: 7.00 Aov Mn Grad: 4.00 WILEY Cont.VTI: 3.21 LVOT LVOT Pk Darren: 1.09 LVOT Mn Darren: 0.77 LVOT VTI: 0.25 LVOT Pk Grad: 5.00 LVOT Mn Grad: 3.00 LVOT Diam: 2.30 LVOT Area: 4.15 Diastolic Function MV Pk E: 0.83 MV Pk A: 0.72 E/A: 1.10 E'Medial: 7.51 E/E' Med: 11.00 E' Laterial: 11.30 E/E' Lat: 7.30 Right Ventricle TAPSE (mm): 18.50 TVS' Darren: 11.60 Great Vessels Aorta Sinus of Valsalva: 3.60 2.0-3.5 cm Ao Asc: 3.30 2.1-3.4 cm Ao Arch: 2.80 Pulmonary Veins Pulm Vein S/D 1.30 Pulmonary Valve PV Pk Darren: 1.09 Peak PV Grad: 5.00 Updated in Other Vendor System with Status of Final Murray Rojas MD electronically signed on 03/28/2025 10:51:10 AM with status of Final
--- OUTSIDE RECORDS SUMMARY | 2025-03-27 15:26 | XMS_ITS | Patient Health Record ---
[facility] Address [address] [place] [address] Care Team Providers Care Garment Parts Cutter Hand Name Role Phone Genny Guido MD Primary Care Provider Unavail able Fatuma Busby Unavailable [phone] Allergies Allergen (clinical drug ingredient) Drug/Non Drug [...] Insured Coverage Start Date Coverage End Date [facility] [address] [facility] [id number] [phone] [id number] Brian Cornejo Self - patient is the insured Medical (General) History Medical History History ICD Code Gout High blood pressure Sciatica Surgical History Surgery Date(Month/Year) umbilical hernia repair 2018 gastric bypass vsg 02/2019
== END ==
LOC: HO.CARD 13:48
PROVIDERS: PCP Physician Assistant; Visit Provider Physician Assistant
DX: Z13.6 Encounter for screening for cardiovascular disorders (principal); R55 Syncope and collapse; R06.00 Dyspnea, unspecified
CPT/HCPCS: 93225; 93306

== ENCOUNTER → 2025-03-27 13:51 | Outpatient (BNV) | payer OTHER, SELFPAY | PROVIDERS: PCP Physician Assistant; Visit Provider Internal Medicine | DX: R06.02 Shortness of breath (principal); R55 Syncope and collapse | CPT/HCPCS: 93306 ==

== ENCOUNTER 2025-04-07 11:08 | Outpatient (REF) | payer OTHER, SELFPAY ==
--- NOTE | ~2025-04-07 | XR_ITS ---
EXAMINATION: XR KNEE 1-2 VIEWS LEFT HISTORY: M25.561 - Pain in right knee COMPARISON: There are no prior studies available for comparison. FINDINGS: AP and lateral views of the left knee are submitted. Osseous mineralization is normal. There is no fracture or dislocation. There is moderate to severe osteoarthritis of the medial compartment and moderate osteoarthritis of the patellofemoral compartment, with joint space narrowing and osteophyte formation. There is a small joint effusion. XR/XR knee LT 2V IMPRESSION: Small joint effusion. Osteoarthritis of the left knee as described. Electronically signed by: Serafin Zimmer MD 04/07/2025 11:48 AM EDT
--- NOTE | ~2025-04-07 | XR_ITS ---
EXAMINATION: XR HIP 2 OR MORE VIEWS BILATERAL HISTORY: M25.551 - Pain in right hip COMPARISON: There are no prior studies available for comparison. FINDINGS: Two views of each hip are submitted. Osseous mineralization is normal. There is no fracture or dislocation. There is mild joint space narrowing of both hips. The soft tissues are unremarkable. XR/XR hips LINDA min 3V IMPRESSION: Mild bilateral joint space narrowing. Electronically signed by: Serafin Zimmer MD 04/07/2025 11:51 AM EDT
--- NOTE | ~2025-04-07 | XR_ITS ---
EXAMINATION: XR LUMBAR SPINE 2-3 VIEWS HISTORY: M54.50 - Low back pain, unspecified COMPARISON: There are no prior studies for comparison. FINDINGS: AP, lateral, and coned down views of the lumbar spine are submitted. Osseous mineralization is normal. Five nonrib-bearing lumbar vertebral bodies are identified, maintaining normal height and alignment without evidence of fracture or spondylolisthesis. There is moderate degenerative disc disease with disc space narrowing and osteophyte formation. There is osteoarthritis of the lower lumbar facet joints. The visualized paraspinal soft tissues are unremarkable. XR/XR lumbar spine 2-3V IMPRESSION: Moderate degenerative disc disease. Electronically signed by: Serafin Zimmer MD 04/07/2025 11:55 AM EDT
== END 2025-04-07 11:09 | disposition home or self-care (01) ==
LOC: HO.HMGCX 11:08
PROVIDERS: PCP Physician Assistant; Visit Provider Physician Assistant
DX: M25.561 Pain in right knee (principal); M25.551 Pain in right hip; M54.50 Low back pain, unspecified; M25.552 Pain in left hip; M25.562 Pain in left knee
CPT/HCPCS: 72100; 73522; 73560

== ENCOUNTER → 2025-04-07 11:15 | Outpatient (BNV) | payer OTHER, SELFPAY | PROVIDERS: PCP Physician Assistant; Visit Provider Radiology Diagnostic Radiology | DX: M16.0 Bilateral primary osteoarthritis of hip (principal); M51.360 Other intervertebral disc degeneration, lumbar region with discogenic back pain only; M17.12 Unilateral primary osteoarthritis, left knee; M25.462 Effusion, left knee | CPT/HCPCS: 72100; 73522; 73560 ==

== ENCOUNTER 2025-04-14 10:22 | Outpatient (REF) | payer OTHER, SELFPAY ==
--- NOTE | ~2025-04-14 | US_ITS ---
CLINICAL HISTORY: R00.2 - Palpitations US Bilateral Carotid Duplex Comparison: None provided Findings: No significant plaque within the common carotid arteries. No significant plaque within the carotid bulbs. Normal color doppler and waveforms morphology. Peak systolic velocities: Right CCA: 131 cm/s. Right ICA: 63 cm/s. ICA/CCA ratio: 0.5. Right ECA: Unremarkable. Right vertebral artery flow antegrade. Left CCA: 109 cm/s. Left ICA: 56 cm/s. ICA/CCA ratio: 0.4. Left ECA: Unremarkable. Left vertebral artery flow antegrade. IMPRESSION: Normal carotid velocities, no significant stenosis (0-49% stenosis). This document has been electronically signed by: Arben Mayer MD on 04/16/2025 09:46:32
--- OUTSIDE RECORDS SUMMARY | 2025-04-14 12:20 | XMS_ITS | Patient Health Record ---
[facility] Address [address] [place] [address] Care Team Providers Care Mortgage Coordinator Name Role Phone Genny Guido MD Primary Care Provider Unavail able Fatuma Busby Unavailable [phone] Allergies Allergen (clinical drug ingredient) Drug/Non Drug [...] Insured Coverage Start Date Coverage End Date [facility] [address] [facility] [place] [id number] Brian Cornejo Self - patient is the insured Medical (General) History Medical History History ICD Code Gout High blood pressure Sciatica Surgical History Surgery Date(Month/Year) umbilical hernia repair 2018 gastric bypass vsg 02/2019
== END 2025-04-14 10:23 | disposition home or self-care (01) ==
LOC: HO.HMGCX 10:22
PROVIDERS: PCP Physician Assistant; Visit Provider Physician Assistant
DX: R00.2 Palpitations (principal); R55 Syncope and collapse
CPT/HCPCS: 93880

== ENCOUNTER → 2025-04-14 10:38 | Outpatient (BNV) | payer OTHER, SELFPAY | PROVIDERS: PCP Physician Assistant; Visit Provider Specialist | DX: R00.2 Palpitations (principal) | CPT/HCPCS: 93880 ==

== ENCOUNTER → 2025-04-18 07:56 | Outpatient (REF) | payer OTHER, SELFPAY ==
--- NOTE | ~2025-04-18 | NM_ITS ---
EXERCISE MYOCARDIAL PERFUSION STUDY INDICATION: Chest pain to evaluate for myocardial ischemia TECHNIQUE: The patient was brought in for an exercise perfusion study on 04/18/2025. Patient performed exercise as per Harish protocol and was injected 45 mCi of sestamibi once target heart rate was achieved. Images were obtained using the SPECT gamma camera interlaced with the gating device. Images were obtained in supine position. Resting perfusion study was performed on 04/19/2025. Patient was administered 45 mCi of sestamibi intravenously at rest. Images were then obtained in supine position. Images obtained without without CT attenuation. Total DLP 146 mGy-cm. Images were processed with the software and compared side to side in short axis, horizontal long axis and vertical long axis views. FINDINGS: Raw images were reviewed The stress perfusion study showed nonattenuated images show mildly reduced uptake in the inferior wall of the LV myocardium. Remainder of the LV myocardium is normally perfused. Attenuated corrected images show mildly reduced uptake in the apex of the LV myocardium. The gated study shows normal LV systolic function with calculated LVEF of 73%. LV cavity is normal in size. The gated study shows normal systolic wall thickening and contraction of segments. Resting study shows no change in perfusion pattern compared to stress perfusion study. Gating at rest reveals normal systolic wall motion with ejection fraction at 68%. The findings are consistent with normal myocardial perfusion. NM/NM cardiolite stress test IMPRESSION: 1. Myocardial perfusion imaging study shows normal myocardial perfusion. 2. Gated LVEF is 68%. 3. Transient ischemic dilatation not present. EKG revealed negative for ischemia. Electronically signed by: Mahesh Patel MD 04/19/2025 03:55 PM EDT
--- NOTE | 2025-04-18 07:58 | CA_ITS ---
Acquisition Time: 2025-04-18 08:35:39 Total Exercise Time: 00:05:35 Test Indications: Medications: ALLOPUROL AMLODIPINE LOSARTAN Protocol: ANGELINA Max HR: 157 BPM 95% of Pred: 165 BPM Max BP: 140/82 mmHG Max Work Load: 7.0 METS Exercise stress test with exercise 5 mins 35 secs of Angelina Protocol, achieving 95% MPHR, with reports of SOB, no chest pain, with isolated PAC, with normotensive response to exercise. Without any EKG changes meeting criteria for ischemia. In recovery, breathing improved to baseline. Nuclear images pending. Test reviewed with Dr. Patel. Referred By: Yanna Cardoso Electronically Signed By: Cheko Hdz
--- OUTSIDE RECORDS SUMMARY | 2025-04-18 07:58 | XMS_ITS | Patient Health Record ---
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
== END ==
LOC: HO.CARD 07:56
PROVIDERS: PCP Physician Assistant; Visit Provider Physician Assistant
DX: Z13.6 Encounter for screening for cardiovascular disorders (principal); R55 Syncope and collapse; R06.00 Dyspnea, unspecified; R07.9 Chest pain, unspecified
CPT/HCPCS: 78452; 93017; A9500

== ENCOUNTER → 2025-04-18 07:58 | Outpatient (BNV) | payer OTHER, SELFPAY | PROVIDERS: PCP Physician Assistant | DX: I49.1 Atrial premature depolarization (principal); R06.02 Shortness of breath | CPT/HCPCS: 78452; 93016; 93018 ==

== ENCOUNTER 2025-06-06 09:30 | Outpatient (AMB) | payer OTHER, SELFPAY ==
--- NOTE | 2025-06-06 09:34 | MHC.PC.OV ---
Vital Signs 06/06/25 09:39 Height 6 ft 1 in Weight 332 lb 4 oz BMI 43.8 BP 125/74 Blood Pressure Location Lt brachial Position Sitting Respiration 16 Pulse 61 Pulse Source Pulse Oximeter Temp 97.9 F Temp Source Oral Pulse Oximetry (%) 96 Oxygen Delivery Method Room Air Intake Visit Reasons: med check, resched Intake Note: patient here for Med check Senior Speech Pathologist Required: No Allergies adhesive tape Adverse Reaction (Severe, Verified 06/06/25 09:36) Hives Medication List - Last Reconciled 06/06/25 by Yanna Cardoso PA-C allopurinol 200 mg (2 x 100 mg) PO DAILY amlodipine 5 mg PO DAILY cholecalciferol (vitamin D3) 25 mcg PO DAILY clobetasol 0.05% 1 appl topical BID CPAP (CPAP Machine/Device) As directed cyanocobalamin (vitamin B-12) 1,000 mcg PO DAILY cyclobenzaprine 5 mg PO DAILY PRN epinephrine 1 mg IM Q30M PRN fluoxetine 40 mg PO DAILY gabapentin 300 mg PO TID losartan 100 mg PO DAILY meloxicam 15 mg PO DAILY multivitamin 1 tab PO DAILY Tobacco use date assessed: 06/06/25 Dental Screening Dental Screen Date: 06/06/25 Did you have a dental visit in the last 12 months?: Yes Did you have a dental problem in the last 6 months where you did not have access to dental care?: No Was dental information given to patient?: Patient has dentist HPI med check, resched HPI Details Patient is a 54-year-old male who presents today for a follow up. He has a significant past medical history of hypertension, sleep apnea, on CPAP, gout, colon polyps, anxiety and depression. Msk: He had a recent lumbar MRI which showed nerve root compression and severe/moderate stenosis L4-5. He followed with [facility] for this and is being referred to [facility]. He is getting intermittent radiation down the legs and does feel a numbness sensation on the left. CV: When I last saw him he did tell me about of time that he felt like he got up quickly and felt lightheaded and also was experiencing significant pain and he did collapse. He had a Holter monitor, echo, carotid ultrasound, stress test which was negative. Labs were reassuring. He states that he has not had anything to him feel dizzy or lightheaded. He denies any chest pain or shortness on breath. He states he thinks it is because he got up quickly and had sharp shooting pain that it shocked him. Blood pressure today in the office is normal. 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 Cognitive needs: No Hearing needs: Yes Vision needs: No Questionnaire Thrive Questionnaire Date Thrive assessed: 02/20/25 I am a: Patient What is your living situation today?: I choose not to answer this question Within the past 12 months, did the food you bought not last and you didn't have the money to get more?: I choose not to answer this question Within the past 12 months, did you worry whether your food would run out before you got money to buy more?: I choose not to answer this question Do you have trouble paying for medicines?: I choose not to answer this question Do you have trouble getting transportation to medical appointments?: I choose not to answer this question Do you have trouble paying your heating and electricity bill?: I choose not to answer this question Do you have trouble taking care of your child, family member or friend?: I choose not to answer this question Do you have trouble with day-to-day activities such as bathing, preparing meals, shopping, managing finances, etc.?: No Are you currently unemployed and looking for a job?: No Are you interested in more education?: No Please select the resources that you would like help with: None Currently or been in a relationship where the following occur: I choose not to answer THRIVE Score: 0 RANDALL-7 AMB Questionnaire RANDALL-7 Date RANDALL - 7 assessed: 10/26/23 Source: Developed by Drs. Serafin Chilel, Acacia White, Flynn Hernandez and colleagues, with an educational johanna from [employer]. Physical exam (Primary Care) Vital Signs: Last Vital Signs Temp 97.9 F 06/06/25 09:39 Pulse 61 06/06/25 09:39 Resp 16 06/06/25 09:39 BP 125/74 06/06/25 09:39 Pulse Ox 96 06/06/25 09:39 Oxygen Delivery Method Room Air 06/06/25 09:39 BMI result Body Mass Index 43.8 Tobacco/Smoking Status: Tobacco use Status Tobacco use date assessed 06/06/25 06/06/25 09:42 Patient Tobacco Use Status Never used Tobacco 06/06/25 09:42 e-Cigarette/Vaping Use Never Used 06/06/25 09:42 Thrive Assessment: Date of Thrive Assessment Date Thrive assessed 02/20/25 06/06/25 09:42 Currently or been in a relationship where the following occur: I choose not to answer Const Orientation/consciousness: patient oriented x3 HENMT Ears: hearing grossly normal bilaterally Neck Thyroid: Thyroid normal Lymphatic: no lymphadenopathy noted Resp Auscultation: clear to auscultation bilaterally Cardio Rate: regular rate Rhythm: regular rhythm Heart sounds: S1 normal heart sound present and S2 normal heart sound present GI Inspection: Yes normal to inspection Palpation (GI): Soft to palpation and Other GI palpation findings present (nontender, no cva tenderness) Auscultation: normoactive bowel sounds Rectal Exam - Male: Yes deferred Skin General skin exam: no rashes or lesions noted Neuro General: patient oriented x3, gait normal and no focal motor deficits Results Reviewed Results Reviewed: NM/NM cardiolite stress test IMPRESSION: 1. Myocardial perfusion imaging study shows normal myocardial perfusion. 2. Gated LVEF is 68%. 3. Transient ischemic dilatation not present. IMPRESSION: Normal carotid velocities, no significant stenosis (0-49% stenosis). Conclusions: - The left ventricular systolic function is normal. The calculated ejection fraction is 59% by biplane method. - No obvious valvular pathology seen on this study. Conclusion: 1. Patient was monitored for total period of 1 day and 1 hour 2. Baseline was normal sinus rhythm with average heart of 66 beats per minute 3. Rare PACs noted 4. No significant pauses or tachyarrhythmias noted 5. No patient reported events Coding Level of Care Code Est Pt Level 4 (65175) Complex visit Add On G2211 Diagnoses Primary hypertension I10 Hypertension type: primary hypertension H/O gastric sleeve Z90.3 MDD (major depressive disorder), recurrent episode, mild F33.0 Severe obesity (BMI >= 40) E66.01 Bilateral leg pain M79.604; M79.605 Vitamin D deficiency E55.9 Assessment & Plan Assessment & Plan (1) Hypertension: Code(s): I10 - Essential (primary) hypertension Category: Medical Qualifiers: Hypertension type: primary hypertension Qualified Code(s): I10 - Essential (primary) hypertension Plan: WNL. Continue current regimen (2) H/O gastric sleeve: Code(s): Z90.3 - Acquired absence of stomach [part of] Category: Surgical Plan: Labs ordered. (3) MDD (major depressive disorder), recurrent episode, mild: Code(s): F33.0 - Major depressive disorder, recurrent, mild Category: Medical Plan: Currently well-controlled on fluoxetine. (4) Severe obesity (BMI >= 40): Code(s): E66.01 - Morbid (severe) obesity due to excess calories Category: Medical Plan: Encouraged diet and exercise. He has lost three lb since our previous visit (5) Bilateral leg pain: Code(s): M79.604 - Pain in right leg; M79.605 - Pain in left leg Category: Medical Plan: Following with [facility] We will try a prednisone taper He will let me know if anything improves (6) Vitamin D deficiency: Code(s): E55.9 - Vitamin D deficiency, unspecified Category: Medical Plan: Continue supplement Orders: Orders TSH reflex Free T4 Today E55.9 - Vitamin D deficiency, unspecified, F33.0 - Major depressive disorder, recurrent, mild, I10 - Essential (primary) hypertension, M79.604 - Pain in right leg, M79.605 - Pain in left leg, Z90.3 - Acquired absence of stomach [part of] Prostate Specific Antigen Scr Today E55.9 - Vitamin D deficiency, unspecified, F33.0 - Major depressive disorder, recurrent, mild, I10 - Essential (primary) hypertension, M79.604 - Pain in right leg, M79.605 - Pain in left leg, Z01.89 - Encounter for other specified special examinations, Z90.3 - Acquired absence of stomach [part of] Vitamin B12 and Folate Today E55.9 - Vitamin D deficiency, unspecified, F33.0 - Major depressive disorder, recurrent, mild, I10 - Essential (primary) hypertension, M79.604 - Pain in right leg, M79.605 - Pain in left leg, Z90.3 - Acquired absence of stomach [part of] Lipid Panel Today E55.9 - Vitamin D deficiency, unspecified, F33.0 - Major depressive disorder, recurrent, mild, I10 - Essential (primary) hypertension, M79.604 - Pain in right leg, M79.605 - Pain in left leg, Z90.3 - Acquired absence of stomach [part of] Comprehensive [place]. Panel Fast Today E55.9 - Vitamin D deficiency, unspecified, F33.0 - Major depressive disorder, recurrent, mild, I10 - Essential (primary) hypertension, M79.604 - Pain in right leg, M79.605 - Pain in left leg, Z90.3 - Acquired absence of stomach [part of] Complete Blood Count Auto Diff Today E55.9 - Vitamin D deficiency, unspecified, F33.0 - Major depressive disorder, recurrent, mild, I10 - Essential (primary) hypertension, M79.604 - Pain in right leg, M79.605 - Pain in left leg, Z90.3 - Acquired absence of stomach [part of] Hemoglobin A1c Today E55.9 - Vitamin D deficiency, unspecified, F33.0 - Major depressive disorder, recurrent, mild, I10 - Essential (primary) hypertension, M79.604 - Pain in right leg, M79.605 - Pain in left leg, R73.01 - Impaired fasting glucose, Z90.3 - Acquired absence of stomach [part of] Vitamin D 25-OH Total Today E55.9 - Vitamin D deficiency, unspecified, F33.0 - Major depressive disorder, recurrent, mild, I10 - Essential (primary) hypertension, M79.604 - Pain in right leg, M79.605 - Pain in left leg, Z90.3 - Acquired absence of stomach [part of] Medications: New prednisone take 3 tab po x 3 days, take 2 tab po x 3 days, 1 tab po x 3 days 18 tabs 0RF
[2025-06-06 09:39] VITALS: BP 125/74; PULSE 61; RESP 16; TEMP 36.6; O2SAT 96; BMI 43.8
== END 2025-06-06 10:05 | disposition home or self-care (01) ==
LOC: HO.HMCFM 09:31
PROVIDERS: PCP Physician Assistant; Visit Provider Physician Assistant
DX: I10 Essential (primary) hypertension (principal); F33.0 Major depressive disorder, recurrent, mild; E66.01 Morbid (severe) obesity due to excess calories; Z68.41 Body mass index [BMI] 40.0-44.9, adult; Z90.3 Acquired absence of stomach [part of]; M79.604 Pain in right leg; M79.605 Pain in left leg; E55.9 Vitamin D deficiency, unspecified